=== PATIENT | female | born 2000 | race Hispanic/Latino ===

== ENCOUNTER 2025-05-06 06:03 | Emergency (ER) | payer SELFPAY ==
[2025-05-06] MEDS ORDERED: Albuterol 2.5 MG (3 mL) NEB ONE (06:34)
== END 2025-05-06 07:10 | disposition home or self-care (01) ==
LOC: MADERS 06:03
DX: J06.9 Acute upper respiratory infection, unspecified (principal); B97.89 Other viral agents as the cause of diseases classified elsewhere; R06.02 Shortness of breath
CPT/HCPCS: 94640; J7611